=== PATIENT | female | born 1945 ===

== ENCOUNTER 2021-09-18 07:49 | Inpatient (IN) ==
[2021-09-18] MEDS: Docusate LIQ 100 MG/10 ML UDC G TUBE SCH (21:45)
[2021-09-18] MEDS: levETIRAcetam LIQ 500 MG/5 ML UDC G TUBE SCH (21:45)
[2021-09-19 07:03] LABS: ABS Basophils 0.1 10^3/ul (0-0.2); ABS Eosinophils 0.4 10^3/ul (0-0.6); ABS Lymphocytes 1.3 10^3/ul (1.0-4.8); ABS Neutrophils 6.2 10^3/ul (1.5-7.7); Eosinophil % 4.4 %; Hematocrit 32 % (35-47); Hemoglobin 10.7 g/dL (12.0-16.0); Lymphocyte % 14.2 %; Mean Corpuscular HGB Conc 33 g/dL (31-36); Mean Corpuscular Hemoglobin 32 pg (27-31); Mean Corpuscular Volume 96 fL (80-97); Mean Platelet Volume 9.1 fL (7.4-10.4); Platelet Count 260 10^3/uL (150-450); Red Blood Count 3.37 10^6 /uL (3.70-4.87); Red Cell Distribution Width 14 % (10-15); White Blood Count 8.9 10^3/uL (3.5-10.8)
[2021-09-19 07:13] LABS: Albumin 3.3 g/dL (3.2-5.2); Calcium 9.4 mg/dL (8.6-10.3); Globulin 3.3 g/dL (2-4); Potassium 4.5 mmol/L (3.5-5.0); Total Bilirubin 0.4 mg/dL (0.2-1.0); Total Protein 6.6 g/dL (6.4-8.9); eGFR CKD-EPI 73.6 (>60)
[2021-09-19] MEDS: Docusate LIQ 100 MG/10 ML UDC G TUBE SCH ×2 (09:42→20:40)
[2021-09-19] MEDS: levETIRAcetam LIQ 500 MG/5 ML UDC G TUBE SCH ×2 (09:42→20:40)
[2021-09-20] MEDS: levETIRAcetam LIQ 500 MG/5 ML UDC G TUBE SCH ×2 (09:10→21:18)
[2021-09-20] MEDS: Docusate LIQ 100 MG/10 ML UDC G TUBE SCH ×2 (09:10→21:18)
[2021-09-20] MEDS: Heparin 5000 UNITS/ML 1 mL VIAL SUBCUT SCH (21:05)
[2021-09-21 06:17] LABS: ABS Basophils 0.1 10^3/ul (0-0.2); ABS Eosinophils 0.4 10^3/ul (0-0.6); ABS Lymphocytes 1.3 10^3/ul (1.0-4.8); ABS Neutrophils 4.7 10^3/ul (1.5-7.7); Eosinophil % 4.9 %; Hematocrit 29 % (35-47); Hemoglobin 9.6 g/dL (12.0-16.0); Lymphocyte % 17.4 %; Mean Corpuscular HGB Conc 33 g/dL (31-36); Mean Corpuscular Hemoglobin 32 pg (27-31); Mean Corpuscular Volume 95 fL (80-97); Platelet Count 216 10^3/uL (150-450); Red Blood Count 3.03 10^6 /uL (3.70-4.87); Red Cell Distribution Width 14 % (10-15); White Blood Count 7.5 10^3/uL (3.5-10.8)
[2021-09-21] MEDS: levETIRAcetam LIQ 500 MG/5 ML UDC G TUBE SCH ×2 (10:26→22:10)
[2021-09-21] MEDS: Heparin 5000 UNITS/ML 1 mL VIAL SUBCUT SCH ×2 (10:27→22:09)
[2021-09-21] MEDS: Docusate LIQ 100 MG/10 ML UDC G TUBE SCH ×2 (10:27→22:13)
[2021-09-22] MEDS: Docusate LIQ 100 MG/10 ML UDC G TUBE SCH ×2 (09:31→22:18)
[2021-09-22] MEDS: levETIRAcetam LIQ 500 MG/5 ML UDC G TUBE SCH ×2 (09:32→22:26)
[2021-09-22] MEDS: Heparin 5000 UNITS/ML 1 mL VIAL SUBCUT SCH ×2 (09:32→22:20)
[2021-09-23] MEDS: levETIRAcetam LIQ 500 MG/5 ML UDC G TUBE SCH ×2 (09:20→21:25)
[2021-09-23] MEDS: Docusate LIQ 100 MG/10 ML UDC G TUBE SCH ×2 (09:21→21:26)
[2021-09-23] MEDS: Heparin 5000 UNITS/ML 1 mL VIAL SUBCUT SCH ×2 (09:22→21:23)
[2021-09-24] MEDS: Heparin 5000 UNITS/ML 1 mL VIAL SUBCUT SCH ×2 (09:27→21:49)
[2021-09-24] MEDS: Docusate LIQ 100 MG/10 ML UDC G TUBE SCH ×3 (09:28→21:37)
[2021-09-24] MEDS: levETIRAcetam LIQ 500 MG/5 ML UDC G TUBE SCH ×2 (09:30→21:37)
[2021-09-24] MEDS: FLUOXETINE 20 MG SCH (12:41)
[2021-09-25] MEDS: levETIRAcetam LIQ 500 MG/5 ML UDC G TUBE SCH ×2 (10:28→21:35)
[2021-09-25] MEDS: FLUOXETINE 20 MG SCH (10:30)
[2021-09-25] MEDS: Heparin 5000 UNITS/ML 1 mL VIAL SUBCUT SCH ×2 (10:30→21:34)
[2021-09-25] MEDS: Docusate LIQ 100 MG/10 ML UDC G TUBE SCH ×2 (10:31→21:34)
[2021-09-26 06:25] LABS: ABS Basophils 0.1 10^3/ul (0-0.2); ABS Eosinophils 0.4 10^3/ul (0-0.6); ABS Lymphocytes 1.9 10^3/ul (1.0-4.8); ABS Monocytes 1.4 10^3/ul (0-0.8); ABS Neutrophils 8.1 10^3/ul (1.5-7.7); Hematocrit 30 % (35-47); Hemoglobin 9.9 g/dL (12.0-16.0); Lymphocyte % 16.2 %; Mean Corpuscular HGB Conc 33 g/dL (31-36); Mean Corpuscular Hemoglobin 32 pg (27-31); Mean Corpuscular Volume 97 fL (80-97); Mean Platelet Volume 9.5 fL (7.4-10.4); Platelet Count 190 10^3/uL (150-450); Red Blood Count 3.12 10^6 /uL (3.70-4.87); Red Cell Distribution Width 15 % (10-15); White Blood Count 11.9 10^3/uL (3.5-10.8)
[2021-09-26 06:59] LABS: Albumin 3.6 g/dL (3.2-5.2); Albumin/Globulin Ratio 1.1 (1-3); Calcium 9.2 mg/dL (8.6-10.3); Globulin 3.2 g/dL (2-4); Potassium 4.2 mmol/L (3.5-5.0); Total Bilirubin 0.5 mg/dL (0.2-1.0); Total Protein 6.8 g/dL (6.4-8.9)
[2021-09-26] MEDS: FLUOXETINE 20 MG SCH (09:32)
[2021-09-26] MEDS: levETIRAcetam LIQ 500 MG/5 ML UDC G TUBE SCH ×2 (09:33→21:34)
[2021-09-26] MEDS: Docusate LIQ 100 MG/10 ML UDC G TUBE SCH ×2 (09:33→21:36)
[2021-09-26] MEDS: Heparin 5000 UNITS/ML 1 mL VIAL SUBCUT SCH ×2 (09:37→21:36)
[2021-09-27 06:29] LABS: ABS Basophils 0.1 10^3/ul (0-0.2); ABS Eosinophils 0.4 10^3/ul (0-0.6); ABS Monocytes 0.8 10^3/ul (0-0.8); ABS Neutrophils 5.1 10^3/ul (1.5-7.7); Eosinophil % 5.3 %; Hematocrit 27 % (35-47); Lymphocyte % 13.5 %; Mean Corpuscular HGB Conc 33 g/dL (31-36); Mean Corpuscular Hemoglobin 31 pg (27-31); Mean Corpuscular Volume 95 fL (80-97); Mean Platelet Volume 9.2 fL (7.4-10.4); Platelet Count 170 10^3/uL (150-450); Red Blood Count 2.87 10^6 /uL (3.70-4.87); Red Cell Distribution Width 15 % (10-15); White Blood Count 7.4 10^3/uL (3.5-10.8)
[2021-09-27] MEDS: FLUOXETINE 20 MG SCH (10:35)
[2021-09-27] MEDS: Docusate LIQ 100 MG/10 ML UDC G TUBE SCH ×2 (10:49→20:41)
[2021-09-27] MEDS: Heparin 5000 UNITS/ML 1 mL VIAL SUBCUT SCH ×2 (10:49→20:41)
[2021-09-27] MEDS: levETIRAcetam LIQ 500 MG/5 ML UDC G TUBE SCH ×2 (10:49→20:41)
[2021-09-28] MEDS: Docusate LIQ 100 MG/10 ML UDC G TUBE SCH ×2 (08:21→20:39)
[2021-09-28] MEDS: levETIRAcetam LIQ 500 MG/5 ML UDC G TUBE SCH ×2 (08:21→20:40)
[2021-09-28] MEDS: Heparin 5000 UNITS/ML 1 mL VIAL SUBCUT SCH ×2 (08:29→20:39)
[2021-09-28] MEDS: FLUOXETINE 20 MG SCH (08:34)
[2021-09-29] MEDS: Docusate LIQ 100 MG/10 ML UDC G TUBE SCH ×2 (09:17→21:38)
[2021-09-29] MEDS: FLUOXETINE 20 MG SCH (09:17)
[2021-09-29] MEDS: levETIRAcetam LIQ 500 MG/5 ML UDC G TUBE SCH ×2 (09:17→20:47)
[2021-09-29] MEDS: Heparin 5000 UNITS/ML 1 mL VIAL SUBCUT SCH ×2 (09:18→20:48)
[2021-09-30] MEDS: levETIRAcetam LIQ 500 MG/5 ML UDC G TUBE SCH ×2 (11:04→20:56)
[2021-09-30] MEDS: Docusate LIQ 100 MG/10 ML UDC G TUBE SCH ×3 (11:04→20:58)
[2021-09-30] MEDS: Heparin 5000 UNITS/ML 1 mL VIAL SUBCUT SCH ×2 (11:25→21:21)
[2021-09-30] MEDS: FLUOXETINE 20 MG SCH (11:25)
[2021-10-01 06:17] LABS: ABS Eosinophils 0.3 10^3/ul (0-0.6); ABS Lymphocytes 1.3 10^3/ul (1.0-4.8); ABS Monocytes 0.8 10^3/ul (0-0.8); ABS Neutrophils 5.8 10^3/ul (1.5-7.7); Eosinophil % 4.1 %; Hematocrit 29 % (35-47); Hemoglobin 9.7 g/dL (12.0-16.0); Lymphocyte % 15.6 %; Mean Corpuscular HGB Conc 33 g/dL (31-36); Mean Corpuscular Hemoglobin 31 pg (27-31); Mean Corpuscular Volume 95 fL (80-97); Mean Platelet Volume 8.6 fL (7.4-10.4); Nucleated Red Blood Cells % 0.1; Platelet Count 187 10^3/uL (150-450); Red Blood Count 3.09 10^6 /uL (3.70-4.87); Red Cell Distribution Width 15 % (10-15); White Blood Count 8.4 10^3/uL (3.5-10.8)
[2021-10-01] MEDS: Heparin 5000 UNITS/ML 1 mL VIAL SUBCUT SCH ×2 (09:07→21:39)
[2021-10-01] MEDS: FLUOXETINE 20 MG SCH (09:12)
[2021-10-01] MEDS: Docusate LIQ 100 MG/10 ML UDC G TUBE SCH ×2 (09:13→21:47)
[2021-10-01] MEDS: levETIRAcetam LIQ 500 MG/5 ML UDC G TUBE SCH ×2 (09:13→21:39)
[2021-10-02] MEDS: Heparin 5000 UNITS/ML 1 mL VIAL SUBCUT SCH ×2 (10:15→21:09)
[2021-10-02] MEDS: Docusate LIQ 100 MG/10 ML UDC G TUBE SCH ×2 (10:20→21:10)
[2021-10-02] MEDS: levETIRAcetam LIQ 500 MG/5 ML UDC G TUBE SCH ×2 (10:23→21:07)
[2021-10-02] MEDS: FLUOXETINE 20 MG SCH (10:25)
[2021-10-03 06:40] LABS: ABS Basophils 0.1 10^3/ul (0-0.2); ABS Eosinophils 0.3 10^3/ul (0-0.6); ABS Lymphocytes 1.3 10^3/ul (1.0-4.8); ABS Monocytes 0.8 10^3/ul (0-0.8); ABS Neutrophils 3.6 10^3/ul (1.5-7.7); Eosinophil % 5.6 %; Hematocrit 31 % (35-47); Lymphocyte % 21.4 %; Mean Corpuscular HGB Conc 33 g/dL (31-36); Mean Corpuscular Hemoglobin 31 pg (27-31); Mean Corpuscular Volume 94 fL (80-97); Platelet Count 203 10^3/uL (150-450); Red Blood Count 3.23 10^6 /uL (3.70-4.87); Red Cell Distribution Width 15 % (10-15)
[2021-10-03 07:03] LABS: Albumin 3.3 g/dL (3.2-5.2); Albumin/Globulin Ratio 1.1 (1-3); Calcium 8.9 mg/dL (8.6-10.3); Globulin 3.1 g/dL (2-4); Potassium 4.7 mmol/L (3.5-5.0); Total Bilirubin 0.3 mg/dL (0.2-1.0); Total Protein 6.4 g/dL (6.4-8.9); eGFR CKD-EPI 79.4 (>60)
[2021-10-03] MEDS: FLUOXETINE 20 MG SCH (10:07)
[2021-10-03] MEDS: levETIRAcetam LIQ 500 MG/5 ML UDC G TUBE SCH ×2 (10:13→20:50)
[2021-10-03] MEDS: Docusate LIQ 100 MG/10 ML UDC G TUBE SCH ×2 (10:14→20:52)
[2021-10-03] MEDS: Heparin 5000 UNITS/ML 1 mL VIAL SUBCUT SCH ×2 (10:14→20:52)
[2021-10-04] MEDS: Heparin 5000 UNITS/ML 1 mL VIAL SUBCUT SCH ×2 (10:37→21:02)
[2021-10-04] MEDS: FLUOXETINE 20 MG SCH (10:38)
[2021-10-04] MEDS: Docusate LIQ 100 MG/10 ML UDC G TUBE SCH ×2 (10:41→20:58)
[2021-10-04] MEDS: levETIRAcetam LIQ 500 MG/5 ML UDC G TUBE SCH ×2 (10:42→20:52)
[2021-10-05] MEDS: FLUOXETINE 20 MG PO SCH (07:40)
[2021-10-05] MEDS: Heparin 5000 UNITS/ML 1 mL VIAL SUBCUT SCH ×2 (07:42→21:03)
[2021-10-06] MEDS: Heparin 5000 UNITS/ML 1 mL VIAL SUBCUT SCH ×2 (09:01→21:29)
[2021-10-06] MEDS: FLUOXETINE 20 MG PO SCH ×2 (09:19→21:24)
[2021-10-07] MEDS: FLUOXETINE 20 MG PO SCH ×2 (08:19→20:43)
[2021-10-07] MEDS: Heparin 5000 UNITS/ML 1 mL VIAL SUBCUT SCH ×2 (08:23→20:09)
[2021-10-08] MEDS: FLUOXETINE 20 MG PO SCH ×2 (09:40→21:45)
[2021-10-08] MEDS: Heparin 5000 UNITS/ML 1 mL VIAL SUBCUT SCH ×2 (09:41→21:45)
[2021-10-09 06:47] VITALS: BP 120/76
[2021-10-09] MEDS: Heparin 5000 UNITS/ML 1 mL VIAL SUBCUT SCH (09:58)
[2021-10-09] MEDS: FLUOXETINE 20 MG PO SCH (09:59)
== END 2021-10-09 13:00 | disposition home health service (06) | DRG 57 ==
LOC: AA 12:47 → PMRU 12:58
PROVIDERS: ADMIT Physical Medicine & Rehabilitation; ATTEND Physical Medicine & Rehabilitation